=== PATIENT | male | born 1940 | race Caucasian/White ===

== ENCOUNTER 2019-06-03 11:34 | Inpatient (IN) ==
[2019-06-03] MEDS ORDERED: *HR* LORazepam 0.5 MG TABLET PO PRN (12:54)
[2019-06-03] MEDS ORDERED: Ipratropium/Albuterol Neb 3 ML IH PRN (12:54)
[2019-06-03] MEDS: Carbidopa/Levodopa 25/250 TABLET PO SCH ×3 (15:15→23:55)
[2019-06-03] MEDS: QUEtiapine Fumarate 25 MG TABLET PO SCH ×2 (15:15→20:48)
[2019-06-03] MEDS: Budesonide/Formoterol 160/4.5 1 PUFF INH IH SCH (20:24)
[2019-06-04 06:59] LABS: Basophils % 0.1 %; Eosinophils # 0.7 K/mcL (0.0-0.6); Eosinophils % 8.3 %; Hematocrit 30.7 % (37.5-50.1); Hemoglobin 9.7 g/dL (12.9-16.9); Immature Granulocytes % 0.3 % (0-4); Lymphocytes # 1.6 K/mcL (0.6-4.6); Lymphocytes % 18.8 %; Mean Corpuscular HGB Conc 31.6 g/dL (31.6-35.5); Mean Platelet Volume 10.3 fL (9.4-12.4); Monocytes # 0.6 K/mcL (0.0-1.3); Monocytes % 7.2 %; Neutrophils # 5.7 K/mcL (1.6-8.9); Platelet Count 319 K/mcL (140-400); Red Blood Count 3.23 M/mcL (4.19-5.50); Red Cell Distribution Width 12.5 % (11.5-14.5); Segmented Neutrophils % 65.3 %; White Blood Count 8.7 K/mcL (4.3-11.1)
[2019-06-04 07:24] LABS: BUN/Creatinine Ratio 16 (6-26); Blood Urea Nitrogen 15 mg/dL (8-23); Carbon Dioxide 28 mEq/L (23-29); Chloride 102 mEq/L (98-107); Glucose 85 mg/dL (70-105); Osmolality,Calculated 288 (280-300); Potassium 3.8 mEq/L (3.5-5.1); Sodium 139 mEq/L (136-145); eGFR For African Americans > 60 (> 60); eGFR For Non-African Americans > 60 (> 60)
[2019-06-04] MEDS: Ertapenem 1,000 MG in 0.9 % Sodium Chloride Mini Bag 100 ML IVPB SCH (08:42)
[2019-06-04] MEDS: Finasteride 5 MG TABLET PO SCH (08:43)
[2019-06-04] MEDS: Furosemide 40 MG TABLET PO SCH (08:43)
[2019-06-04] MEDS: PARoxetine 20 MG TABLET PO SCH (08:43)
[2019-06-04] MEDS: QUEtiapine Fumarate 25 MG TABLET PO SCH ×3 (08:43→21:28)
[2019-06-04] MEDS: Carbidopa/Levodopa 25/250 TABLET PO SCH ×4 (08:44→21:28)
[2019-06-04] MEDS: Budesonide/Formoterol 160/4.5 1 PUFF INH IH SCH ×2 (10:51→22:57)
[2019-06-04] MEDS: haloperidoL 1 MG TABLET PO PRN (21:28)
[2019-06-05] MEDS ORDERED: *HR* LORazepam 2 MG/ML VIAL IVP ONE (07:36)
[2019-06-05] MEDS: Ertapenem 1,000 MG in 0.9 % Sodium Chloride Mini Bag 100 ML IVPB SCH (09:18)
[2019-06-05] MEDS ORDERED: 0.9 % Sodium Chloride 500 ML IVC ONE (09:43)
[2019-06-05] MEDS: Carbidopa/Levodopa 25/250 TABLET PO SCH ×5 (10:44→21:45)
[2019-06-05] MEDS: PARoxetine 20 MG TABLET PO SCH (10:45)
[2019-06-05] MEDS: Furosemide 40 MG TABLET PO SCH (10:45)
[2019-06-05] MEDS: Finasteride 5 MG TABLET PO SCH (10:45)
[2019-06-05] MEDS: QUEtiapine Fumarate 25 MG TABLET PO SCH ×3 (10:46→21:45)
[2019-06-05] MEDS: Budesonide/Formoterol 160/4.5 1 PUFF INH IH SCH ×2 (10:54→22:33)
[2019-06-05 11:00] LABS: Troponin I < 0.03 ng/mL (< 0.04)
[2019-06-05 11:01] LABS: Alanine Aminotransferase 9 Units/L (7-52); Albumin 3.1 g/dL (3.5-5.7); Albumin/Globulin Ratio 1.1 (1.1-2.2); Alkaline Phosphatase 75 Units/L (34-104); Aspartate Amino Transferase 24 Units/L (13-39); BUN/Creatinine Ratio 18 (6-26); Bilirubin,Total 0.3 mg/dL (0.3-1.0); Blood Urea Nitrogen 16 mg/dL (8-23); Calcium 7.9 mg/dL (8.6-10.3); Carbon Dioxide 26 mEq/L (23-29); Chloride 104 mEq/L (98-107); Globulin 2.8 g/dL (2.4-3.5); Glucose 89 mg/dL (70-105); Magnesium 1.8 mg/dL (1.6-2.6); Osmolality,Calculated 289 (280-300); Potassium 3.7 mEq/L (3.5-5.1); Sodium 139 mEq/L (136-145); Total Protein 5.9 g/dL (6.4-8.9); eGFR For African Americans > 60 (> 60); eGFR For Non-African Americans > 60 (> 60)
[2019-06-06] MEDS: Carbidopa/Levodopa 25/250 TABLET PO SCH ×4 (00:41→21:07)
[2019-06-06 06:31] LABS: Hemoglobin 10.7 g/dL (12.9-16.9); Mean Corpuscular HGB Conc 31.5 g/dL (31.6-35.5); Mean Corpuscular Hemoglobin 29.7 pg (28.0-33.3); Mean Corpuscular Volume 94.4 fL (83.0-100.0); Platelet Count 374 K/mcL (140-400); Red Cell Distribution Width 12.6 % (11.5-14.5); White Blood Count 9.5 K/mcL (4.3-11.1)
[2019-06-06 06:52] LABS: BUN/Creatinine Ratio 19 (6-26); Blood Urea Nitrogen 15 mg/dL (8-23); Calcium 8.5 mg/dL (8.6-10.3); Carbon Dioxide 26 mEq/L (23-29); Chloride 103 mEq/L (98-107); Glucose 72 mg/dL (70-105); Osmolality,Calculated 289 (280-300); Potassium 3.8 mEq/L (3.5-5.1); Sodium 140 mEq/L (136-145); eGFR For African Americans > 60 (> 60); eGFR For Non-African Americans > 60 (> 60)
[2019-06-06] MEDS: Ertapenem 1,000 MG in 0.9 % Sodium Chloride Mini Bag 100 ML IVPB SCH (09:36)
[2019-06-06] MEDS: Budesonide/Formoterol 160/4.5 1 PUFF INH IH SCH ×2 (09:39→21:53)
[2019-06-06] MEDS: PARoxetine 20 MG TABLET PO SCH (09:45)
[2019-06-06] MEDS: QUEtiapine Fumarate 25 MG TABLET PO SCH ×3 (09:46→21:08)
[2019-06-06] MEDS: Finasteride 5 MG TABLET PO SCH (09:48)
[2019-06-06] MEDS ORDERED: D5% in 0.45% NACL 1,000 ML IVC SCH (10:45)
[2019-06-07] MEDS: Carbidopa/Levodopa 25/250 TABLET PO SCH ×5 (01:04→20:35)
[2019-06-07] MEDS: Ertapenem 1,000 MG in 0.9 % Sodium Chloride Mini Bag 100 ML IVPB SCH (10:25)
[2019-06-07] MEDS: QUEtiapine Fumarate 25 MG TABLET PO SCH ×3 (10:26→20:36)
[2019-06-07] MEDS: PARoxetine 20 MG TABLET PO SCH (10:26)
[2019-06-07] MEDS: Finasteride 5 MG TABLET PO SCH (10:27)
[2019-06-07] MEDS: Budesonide/Formoterol 160/4.5 1 PUFF INH IH SCH ×2 (11:16→21:58)
[2019-06-07] MEDS: haloperidoL 1 MG TABLET PO PRN (12:29)
[2019-06-07] MEDS: Acetaminophen 325 MG TABLET PO PRN (12:29)
[2019-06-08] MEDS: Carbidopa/Levodopa 25/250 TABLET PO SCH ×5 (00:50→21:44)
[2019-06-08] MEDS: Acetaminophen 325 MG TABLET PO PRN (06:37)
[2019-06-08] MEDS: Ertapenem 1,000 MG in 0.9 % Sodium Chloride Mini Bag 100 ML IVPB SCH (10:29)
[2019-06-08] MEDS: Finasteride 5 MG TABLET PO SCH (10:31)
[2019-06-08] MEDS: PARoxetine 20 MG TABLET PO SCH (10:31)
[2019-06-08] MEDS: QUEtiapine Fumarate 25 MG TABLET PO SCH ×3 (10:33→21:44)
[2019-06-08] MEDS: Budesonide/Formoterol 160/4.5 1 PUFF INH IH SCH ×2 (11:15→22:30)
[2019-06-09] MEDS: haloperidoL 1 MG TABLET PO PRN (00:41)
[2019-06-09] MEDS: Carbidopa/Levodopa 25/250 TABLET PO SCH ×4 (00:41→15:27)
[2019-06-09 07:44] LABS: Hematocrit 30.9 % (37.5-50.1); Hemoglobin 10.1 g/dL (12.9-16.9); Mean Corpuscular HGB Conc 32.7 g/dL (31.6-35.5); Mean Corpuscular Hemoglobin 30.3 pg (28.0-33.3); Mean Corpuscular Volume 92.8 fL (83.0-100.0); Mean Platelet Volume 10.4 fL (9.4-12.4); Platelet Count 344 K/mcL (140-400); Red Blood Count 3.33 M/mcL (4.19-5.50); White Blood Count 13.1 K/mcL (4.3-11.1)
[2019-06-09] MEDS: Ertapenem 1,000 MG in 0.9 % Sodium Chloride Mini Bag 100 ML IVPB SCH (07:44)
[2019-06-09] MEDS: Finasteride 5 MG TABLET PO SCH (07:45)
[2019-06-09] MEDS: PARoxetine 20 MG TABLET PO SCH (07:45)
[2019-06-09] MEDS: QUEtiapine Fumarate 25 MG TABLET PO SCH ×2 (07:45→15:26)
[2019-06-09 09:38] LABS: BUN/Creatinine Ratio 28 (6-26); Blood Urea Nitrogen 27 mg/dL (8-23); Calcium 8.2 mg/dL (8.6-10.3); Carbon Dioxide 23 mEq/L (23-29); Chloride 108 mEq/L (98-107); Glucose 89 mg/dL (70-105); Osmolality,Calculated 299 (280-300); Sodium 142 mEq/L (136-145); eGFR For African Americans > 60 (> 60); eGFR For Non-African Americans > 60 (> 60)
[2019-06-09] MEDS: Budesonide/Formoterol 160/4.5 1 PUFF INH IH SCH ×2 (10:56→21:54)
[2019-06-09] MEDS: Colchicine 0.6 MG TABLET PO SCH (13:47)
[2019-06-09] MEDS ORDERED: Ibuprofen 400 MG TABLET PO PRN (14:36)
[2019-06-09] MEDS: predniSONE 20 MG TABLET PO SCH (15:25)
[2019-06-10] MEDS: QUEtiapine Fumarate 25 MG TABLET PO SCH ×4 (00:05→20:20)
[2019-06-10] MEDS: Colchicine 0.6 MG TABLET PO SCH ×3 (00:05→20:20)
[2019-06-10] MEDS: Carbidopa/Levodopa 25/250 TABLET PO SCH ×6 (00:05→20:20)
[2019-06-10] MEDS: Ertapenem 1,000 MG in 0.9 % Sodium Chloride Mini Bag 100 ML IVPB SCH (09:53)
[2019-06-10] MEDS: Budesonide/Formoterol 160/4.5 1 PUFF INH IH SCH ×2 (10:38→22:07)
[2019-06-10] MEDS: Finasteride 5 MG TABLET PO SCH (12:36)
[2019-06-10] MEDS: predniSONE 20 MG TABLET PO SCH (12:36)
[2019-06-10] MEDS: PARoxetine 20 MG TABLET PO SCH (12:36)
[2019-06-11] MEDS: Carbidopa/Levodopa 25/250 TABLET PO SCH ×5 (02:48→20:59)
[2019-06-11] MEDS: Finasteride 5 MG TABLET PO SCH (08:07)
[2019-06-11] MEDS: QUEtiapine Fumarate 25 MG TABLET PO SCH ×3 (08:08→21:00)
[2019-06-11] MEDS: PARoxetine 20 MG TABLET PO SCH (08:09)
[2019-06-11] MEDS: Ertapenem 1,000 MG in 0.9 % Sodium Chloride Mini Bag 100 ML IVPB SCH (08:09)
[2019-06-11] MEDS: predniSONE 20 MG TABLET PO SCH (08:09)
[2019-06-11] MEDS: Budesonide/Formoterol 160/4.5 1 PUFF INH IH SCH ×2 (08:30→22:00)
[2019-06-11] MEDS: Colchicine 0.6 MG TABLET PO SCH ×3 (11:47→20:59)
[2019-06-12] MEDS: Carbidopa/Levodopa 25/250 TABLET PO SCH ×5 (00:20→22:25)
[2019-06-12 05:16] LABS: Hematocrit 30.7 % (37.5-50.1); Immature Granulocytes % 0.2 % (0-4); Lymphocytes # 1.5 K/mcL (0.6-4.6); Lymphocytes % 18.8 %; Mean Corpuscular HGB Conc 32.6 g/dL (31.6-35.5); Mean Corpuscular Hemoglobin 29.9 pg (28.0-33.3); Mean Corpuscular Volume 91.9 fL (83.0-100.0); Mean Platelet Volume 10.5 fL (9.4-12.4); Monocytes # 0.5 K/mcL (0.0-1.3); Monocytes % 6.2 %; Neutrophils # 6.1 K/mcL (1.6-8.9); Platelet Count 429 K/mcL (140-400); Red Blood Count 3.34 M/mcL (4.19-5.50); Red Cell Distribution Width 13.1 % (11.5-14.5); Segmented Neutrophils % 74.8 %; White Blood Count 8.1 K/mcL (4.3-11.1)
[2019-06-12 05:35] LABS: BUN/Creatinine Ratio 53 (6-26); Blood Urea Nitrogen 44 mg/dL (8-23); Carbon Dioxide 28 mEq/L (23-29); Chloride 104 mEq/L (98-107); Glucose 84 mg/dL (70-105); Osmolality,Calculated 300 (280-300); Potassium 4.4 mEq/L (3.5-5.1); Sodium 140 mEq/L (136-145); eGFR For African Americans > 60 (> 60); eGFR For Non-African Americans > 60 (> 60)
[2019-06-12] MEDS: Budesonide/Formoterol 160/4.5 1 PUFF INH IH SCH ×2 (07:38→23:03)
[2019-06-12] MEDS: Ertapenem 1,000 MG in 0.9 % Sodium Chloride Mini Bag 100 ML IVPB SCH (08:16)
[2019-06-12] MEDS: Colchicine 0.6 MG TABLET PO SCH ×2 (08:17→22:25)
[2019-06-12] MEDS: predniSONE 20 MG TABLET PO SCH (08:17)
[2019-06-12] MEDS: PARoxetine 20 MG TABLET PO SCH (08:17)
[2019-06-12] MEDS: QUEtiapine Fumarate 25 MG TABLET PO SCH ×3 (08:17→22:25)
[2019-06-12] MEDS: Finasteride 5 MG TABLET PO SCH (08:18)
[2019-06-12] MEDS ORDERED: Docusate Oral Soln 100 MG/10 ML UDC PO SCH (09:00)
[2019-06-13] MEDS: Ertapenem 1,000 MG in 0.9 % Sodium Chloride Mini Bag 100 ML IVPB SCH (08:34)
[2019-06-13] MEDS: QUEtiapine Fumarate 25 MG TABLET PO SCH ×3 (08:35→20:27)
[2019-06-13] MEDS: Finasteride 5 MG TABLET PO SCH (08:36)
[2019-06-13] MEDS: PARoxetine 20 MG TABLET PO SCH (08:36)
[2019-06-13] MEDS: Carbidopa/Levodopa 25/250 TABLET PO SCH ×5 (08:36→20:27)
[2019-06-13] MEDS: predniSONE 20 MG TABLET PO SCH (08:36)
[2019-06-13] MEDS: Colchicine 0.6 MG TABLET PO SCH ×2 (08:36→20:27)
[2019-06-13] MEDS: Budesonide/Formoterol 160/4.5 1 PUFF INH IH SCH ×2 (11:15→21:08)
[2019-06-14] MEDS: Carbidopa/Levodopa 25/250 TABLET PO SCH ×5 (00:29→20:51)
[2019-06-14] MEDS: PARoxetine 20 MG TABLET PO SCH (08:36)
[2019-06-14] MEDS: Colchicine 0.6 MG TABLET PO SCH ×2 (08:36→20:48)
[2019-06-14] MEDS: QUEtiapine Fumarate 25 MG TABLET PO SCH ×3 (08:36→20:51)
[2019-06-14] MEDS: Finasteride 5 MG TABLET PO SCH (08:37)
[2019-06-14] MEDS: predniSONE 20 MG TABLET PO SCH (08:37)
[2019-06-14] MEDS: Budesonide/Formoterol 160/4.5 1 PUFF INH IH SCH ×2 (11:23→21:18)
[2019-06-14] MEDS: haloperidoL 1 MG TABLET PO PRN (20:48)
[2019-06-15] MEDS: Carbidopa/Levodopa 25/250 TABLET PO SCH ×6 (00:15→23:20)
[2019-06-15] MEDS: Budesonide/Formoterol 160/4.5 1 PUFF INH IH SCH ×2 (08:14→21:17)
[2019-06-15] MEDS: QUEtiapine Fumarate 25 MG TABLET PO SCH ×3 (09:35→20:03)
[2019-06-15] MEDS: Colchicine 0.6 MG TABLET PO SCH ×2 (09:36→20:03)
[2019-06-15] MEDS: PARoxetine 20 MG TABLET PO SCH (09:36)
[2019-06-15] MEDS: predniSONE 10 MG TABLET PO SCH (09:36)
[2019-06-15] MEDS: Finasteride 5 MG TABLET PO SCH (09:36)
[2019-06-15] MEDS: Acetaminophen 325 MG TABLET PO PRN (17:40)
[2019-06-16] MEDS: Carbidopa/Levodopa 25/250 TABLET PO SCH ×6 (07:35→23:46)
[2019-06-16] MEDS: Colchicine 0.6 MG TABLET PO SCH ×2 (07:35→20:03)
[2019-06-16] MEDS: QUEtiapine Fumarate 25 MG TABLET PO SCH ×3 (07:35→20:13)
[2019-06-16] MEDS: predniSONE 10 MG TABLET PO SCH (07:36)
[2019-06-16] MEDS: Finasteride 5 MG TABLET PO SCH (07:36)
[2019-06-16] MEDS: PARoxetine 20 MG TABLET PO SCH (07:36)
[2019-06-16] MEDS: Budesonide/Formoterol 160/4.5 1 PUFF INH IH SCH ×2 (08:08→22:50)
[2019-06-16] MEDS ORDERED: 0.9 % Sodium Chloride 1,000 ML IV ONE (08:41)
[2019-06-16] MEDS ORDERED: 0.9 % Sodium Chloride 1,000 ML ONE (08:47)
[2019-06-16] MEDS: haloperidoL 1 MG TABLET PO PRN (12:41)
[2019-06-17] MEDS: Finasteride 5 MG TABLET PO SCH (09:56)
[2019-06-17] MEDS: predniSONE 5 MG TABLET PO SCH (09:56)
[2019-06-17] MEDS: PARoxetine 20 MG TABLET PO SCH (09:56)
[2019-06-17] MEDS: QUEtiapine Fumarate 25 MG TABLET PO SCH ×2 (09:56→20:50)
[2019-06-17] MEDS: Carbidopa/Levodopa 25/250 TABLET PO SCH ×4 (10:01→21:56)
[2019-06-17] MEDS: Colchicine 0.6 MG TABLET PO SCH (10:05)
[2019-06-17] MEDS: Budesonide/Formoterol 160/4.5 1 PUFF INH IH SCH ×2 (11:01→21:40)
[2019-06-18] MEDS: Carbidopa/Levodopa 25/250 TABLET PO SCH ×5 (01:47→20:26)
[2019-06-18 06:44] LABS: Basophils % 0.2 %; Eosinophils # 0.8 K/mcL (0.0-0.6); Hematocrit 31.7 % (37.5-50.1); Hemoglobin 10.4 g/dL (12.9-16.9); Immature Granulocytes % 0.2 % (0-4); Lymphocytes # 1.6 K/mcL (0.6-4.6); Lymphocytes % 17.8 %; Mean Corpuscular HGB Conc 32.8 g/dL (31.6-35.5); Mean Corpuscular Hemoglobin 30.4 pg (28.0-33.3); Mean Corpuscular Volume 92.7 fL (83.0-100.0); Mean Platelet Volume 10.2 fL (9.4-12.4); Monocytes # 0.8 K/mcL (0.0-1.3); Monocytes % 8.8 %; Neutrophils # 5.6 K/mcL (1.6-8.9); Platelet Count 431 K/mcL (140-400); Red Blood Count 3.42 M/mcL (4.19-5.50); Red Cell Distribution Width 13.4 % (11.5-14.5); White Blood Count 8.7 K/mcL (4.3-11.1)
[2019-06-18 07:05] LABS: BUN/Creatinine Ratio 31 (6-26); Blood Urea Nitrogen 24 mg/dL (8-23); Calcium 8.1 mg/dL (8.6-10.3); Carbon Dioxide 28 mEq/L (23-29); Chloride 103 mEq/L (98-107); Glucose 87 mg/dL (70-105); Osmolality,Calculated 291 (280-300); Potassium 3.6 mEq/L (3.5-5.1); Sodium 139 mEq/L (136-145); eGFR For African Americans > 60 (> 60); eGFR For Non-African Americans > 60 (> 60)
[2019-06-18] MEDS: PARoxetine 20 MG TABLET PO SCH (08:37)
[2019-06-18] MEDS: QUEtiapine Fumarate 25 MG TABLET PO SCH ×2 (08:37→20:23)
[2019-06-18] MEDS: Finasteride 5 MG TABLET PO SCH (08:37)
[2019-06-18] MEDS: predniSONE 5 MG TABLET PO SCH (08:37)
[2019-06-18] MEDS: Budesonide/Formoterol 160/4.5 1 PUFF INH IH SCH ×2 (11:27→22:15)
[2019-06-18] MEDS: haloperidoL 1 MG TABLET PO PRN ×2 (11:47→20:23)
[2019-06-19] MEDS: Carbidopa/Levodopa 25/250 TABLET PO SCH ×5 (00:56→21:25)
[2019-06-19] MEDS: PARoxetine 20 MG TABLET PO SCH (10:25)
[2019-06-19] MEDS: Finasteride 5 MG TABLET PO SCH (10:25)
[2019-06-19] MEDS: QUEtiapine Fumarate 25 MG TABLET PO SCH ×2 (10:25→21:25)
[2019-06-19] MEDS: Budesonide/Formoterol 160/4.5 1 PUFF INH IH SCH ×2 (10:42→21:49)
[2019-06-20] MEDS: Carbidopa/Levodopa 25/250 TABLET PO SCH ×6 (02:42→23:52)
[2019-06-20] MEDS: QUEtiapine Fumarate 25 MG TABLET PO SCH ×2 (08:30→20:29)
[2019-06-20] MEDS: PARoxetine 20 MG TABLET PO SCH (08:30)
[2019-06-20] MEDS: Finasteride 5 MG TABLET PO SCH (08:31)
[2019-06-20] MEDS: Budesonide/Formoterol 160/4.5 1 PUFF INH IH SCH ×2 (08:37→22:15)
[2019-06-21 06:38] VITALS: BP 154/81
[2019-06-21] MEDS: Budesonide/Formoterol 160/4.5 1 PUFF INH IH SCH (07:55)
[2019-06-21] MEDS: Finasteride 5 MG TABLET PO SCH (10:34)
[2019-06-21] MEDS: PARoxetine 20 MG TABLET PO SCH (10:35)
[2019-06-21] MEDS: QUEtiapine Fumarate 25 MG TABLET PO SCH (10:35)
[2019-06-21] MEDS: Carbidopa/Levodopa 25/250 TABLET PO SCH (10:38)
== END 2019-06-21 11:46 | DRG 689 ==
LOC: INPPIK 14:26
PROVIDERS: ADMIT Family Medicine; ATTEND Family Medicine